=== PATIENT | male | born 1990 | race Caucasian/White ===

== ENCOUNTER 2023-11-23 17:40 | Inpatient (IN) | payer OTHER ==
[2023-11-23 18:21] LABS: Absolute Lymphocytes (CBC) 2.3 K/uL (0.7-4.9); Hematocrit 44.7 % (39.6-49.0); Lymphocytes % 24.9 % (15.3-44.8); MCV 88.1 fL (80-100); MPV 8.9 fL (7.6-11.3); Platelets 262 thou/uL (152-406); RBC Red Blood Cell Count 5.08 M/uL (4.33-5.43)
[2023-11-23 18:44] LABS: Bilirubin Total 0.4 mg/dL (0.2-1.0); Potassium 3.6 mEq/L (3.5-5.1); Protein, Total 8.2 g/dL (6.4-8.2); Protime INR 0.99
--- NOTE | 2023-11-23 19:37 | EDPHYS ---
Physician Documentation [facility] Name: Gordo Shah Jr Age: 33 yrs Sex: Male : 1990 Arrival Date: 11/23/2023 Time: 17:40 Bed 15 Private MD: ED Physician Guy Nixon HPI: 11/23 19:28 This 33 yrs old Male presents to ER via Ambulatory with complaints of Abscess. kb 19:28 Patient is a 33-year-old male with a history of HIV who presents for an abscess to left kb thigh that started a week ago. Was seen at urgent care, had an I\T\D with packing and put on Bactrim 4 days ago. Went back to urgent care today because redness has been spreading and he has had chills. Urgent care called him that because of the redness spreading he needed to come to the ER for evaluation and probable admission for IV antibiotics.. Historical: - Allergies: 17:54 Cipro PO; db - PMHx: 17:54 HIV positive; db - Immunization history:: Adult Immunizations unknown, Client reports having NOT received the Covid vaccine. - Social history:: Smoking status: Patient denies any tobacco usage or history of. ROS: 19:26 Constitutional: Negative for fever, chills, and weight loss, kb 19:26 Skin: Positive for abscess, cellulitis, 19:26 All other systems are negative, Exam: 19:26 Constitutional: This is a well developed, well nourished patient who is awake, alert, kb and in no acute distress. Head/Face: Normocephalic, atraumatic. ENT: Moist Mucous membranes Cardiovascular: Regular rate Respiratory: Respirations even and unlabored. No increased work of breathing. Talking in full sentences Abdomen/GI: Soft, non-tender. No distention MS/ Extremity: Pulses equal, no cyanosis. Neurovascular intact. Full, normal range of motion. Neuro: Awake and alert, GCS 15, oriented to person, place, time, and situation. Moves all extremities. Normal gait. 19:26 Skin: abscess, that is moderate sized, of the left quadriceps, with surrounding cellulitis, that is moderate, with packing in place, Vital Signs: 17:51 BP 132 / 80; Pulse 83; Resp 18; Temp 98.5(O); Pulse Ox 97% ; Weight 85.28 kg; Height 6 db ft. 1 in. ; 21:06 BP 120 / 75; Pulse 64; Resp 16; Temp 98(O); Pulse Ox 98% on R/A; km8 17:51 Body Mass Index 24.80 (85.28 kg, 185.42 cm) db MDM: 17:48 Patient medically screened. kb 19:25 Differential diagnosis: abscess, allergic reaction, cellulitis, insect bite. Data kb reviewed: vital signs, nurses notes. Consideration of Admission/Observation Patient was admitted/placed on observation. Escalation of care including admission/observation considered. Management of patient was discussed with the following: Hospitalist: Dr Casas accepts pt for admission. Counseling: I had a detailed discussion with the patient and/or guardian regarding the historical points, exam findings, and any diagnostic results supporting the discharge/admit diagnosis, lab results, the need for further work-up and treatment in the hospital. 11/23 17:55 Order name: Blood Culture Adult (2) kb 11/23 17:55 Order name: CBC with Diff; Complete Time: 18:22 kb 11/23 17:55 Order name: CMP; Complete Time: 18:45 kb 11/23 17:55 Order name: Lactate w/ 2H reflex if indic.; Complete Time: 18:48 kb 11/23 17:55 Order name: Protime (+inr); Complete Time: 18:48 kb 11/23 17:55 Order name: Ptt, Activated; Complete Time: 18:48 kb 11/23 21:21 Order name: Wound Culture EDAZ 11/23 21:43 Order name: Urinalysis w/ reflexes; Complete Time: 12:53 EDAZ 11/23 21:43 Order name: CBC with Automated Diff EDAZ 11/23 21:43 Order name: CBC with Automated Diff; Complete Time: 12:53 EDAZ 11/23 21:43 Order name: Comprehensive Metabolic Panel EDAZ 11/23 21:43 Order name: Comprehensive Metabolic Panel; Complete Time: 12:53 EDAZ 11/23 21:47 Order name: Wound Culture EDAZ 11/24 09:36 Order name: CT; Complete Time: 12:53 EDAZ 11/23 17:55 Order name: EKG; Complete Time: 17:56 kb 11/23 17:55 Order name: Accucheck; Complete Time: 18:20 kb 11/23 17:55 Order name: EKG - Nurse/Tech; Complete Time: 19:36 kb 11/23 17:55 Order name: IV Saline Lock - Large Bore; Complete Time: 18:17 kb 11/23 17:55 Order name: Labs collected and sent; Complete Time: 18:17 kb 11/23 17:55 Order name: O2 Per Protocol; Complete Time: 18:20 kb 11/23 17:55 Order name: O2 Sat Monitoring; Complete Time: 18:20 kb 11/23 17:55 Order name: Vital Signs; Complete Time: 18:20 kb Administered Medications: 19:52 Drug: Ketorolac IVP 15 mg IVP once Route: IVP; Site: right forearm; km8 21:07 Follow up: Response: No adverse reaction [facility] 20:10 Drug: vancoMYCIN IVPB 1 grams IVPB once over 2 hrs Route: IVPB; Infused Over: 2 hrs; km8 Site: right forearm; 22:15 Follow up: IV Status: Completed infusion; IV Intake: 250ml 8 Disposition Summary: 11/23/23 19:36 Hospitalization Ordered Notes: Hospitalization Status: Inpatient Admission kb Provider: Ese Casas Condition: Stable kb Problem: new kb Symptoms: are unchanged kb Bed/Room Type: Standard kb Location: Telemetry/MedSurg (Inpatient)(11/24/23 12:50) Room Assignment: [facility](11/24/23 12:50) bd Diagnosis - Cutaneous abscess of left lower limb kb - Cellulitis of left lower limb kb Forms: - Medication Reconciliation Form kb - SBAR form kb - Leadership Thank You Letter kb Addendum: 11/26/2023 07:04 Co-signature as Attending Physician, Guy Nixon MD I reviewed the patient's care r t provided by the Advanced Practice Provider and agree with the diagnosis and treatment plan. Signatures: Dispatcher [employer] Valerie Gates, TYLER THAYERP-Estephania Patino Danielle, RN Guy Walsh MD MD rt Arely Reagan RN RN km8 Damian Lemus Corrections: (The following items were deleted from the chart) 11/23 17:55 17:54 Allergies: No Known Allergies; [facility] 20:38 19:36 Telemetry/MedSurg (Inpatient) kb ty 20:38 19:36 kb ty 11/24 12:50 02 20:38 [facility] ER HOLD ty bd 11/24 12:50 11/23 20:38 ERHOLD- ty bd
--- NOTE | 2023-11-23 19:37 | ER ---
Nurse's Notes [facility] Name: Gordo Shah Jr Age: 33 yrs Sex: Male : 1990 Arrival Date: 11/23/2023 Time: 17:40 Bed 15 Private MD: Diagnosis: Cutaneous abscess of left lower limb;Cellulitis of left lower limb Presentation: 11/23 17:51 Chief complaint: Patient states: LEFT LEG ABSCESS STARTED LAST WEDNESDAY. SEEN AT URGENT db CARE WEDNESDAY STARTED ANTIBIOTIC AND WEDNESDAY AND WENT BACK TODAY. PACKED ON WEDNESDAY. HAD FOLLOW UP TODAY AND STATES WAS SENT TODAY TO ER BECAUSE REDNESS HAS SPREAD AND THE ABSCESS IS MORE SWOLLEN. Coronavirus screen: Vaccine status: Patient reports receiving the 2nd dose of the covid vaccine. Client denies travel out of the [place] in the last 14 days. At this time, the client does not indicate any symptoms associated with coronavirus-19. Ebola Screen: Patient negative for fever greater than or equal to 101.5 degrees Fahrenheit, and additional compatible Ebola Virus Disease symptoms Patient denies exposure to infectious person. Patient denies travel to an Ebola-affected area in the 21 days before illness onset. No symptoms or risks identified at this time. Initial Sepsis Screen: Does the patient meet any 2 criteria? No. Patient's initial sepsis screen is negative. Does the patient have a suspected source of infection? No. Patient's initial sepsis screen is negative. Risk Assessment: Do you want to hurt yourself or someone else? Patient reports no desire to harm self or others. Onset of symptoms was November 18, 2023. 17:51 Method Of Arrival: Ambulatory db 17:51 Acuity: SHAJI 3 db Triage Assessment: 17:54 General: Appears in no apparent distress. comfortable, Behavior is calm, cooperative. db Pain: Complains of pain in left leg. Neuro: Level of Consciousness is awake, alert, obeys commands, Oriented to person, place, time, situation. Respiratory: Airway is patent Respiratory effort is even, unlabored, Respiratory pattern is regular, symmetrical. Derm: Abscess located on left leg Reports. Historical: - Allergies: 17:54 Cipro PO; db - PMHx: 17:54 HIV positive; db - Immunization history:: Adult Immunizations unknown, Client reports having NOT received the Covid vaccine. - Social history:: Smoking status: Patient denies any tobacco usage or history of. Screenin:09 [facility] ED Fall Risk Assessment (Adult) History of falling in the last 3 months, ph including since admission No falls in past 3 months (0 pts) Score/Fall Risk Level 0 - 2 = Low Risk Oriented to surroundings, Maintained a safe environment, Provided non-skid footwear, Hourly rounding (assess needs \T\ fall precautionary measures) done. Abuse screen: Denies threats or abuse. Denies injuries from another. Nutritional screening: No deficits noted. Tuberculosis screening: No symptoms or risk factors identified. Assessment: 19:08 General: Appears in no apparent distress. comfortable, well groomed, Behavior is calm, ph cooperative, appropriate for age. Pain: Complains of pain in lateral aspect of left thigh. Neuro: Level of Consciousness is awake, alert, obeys commands, Oriented to person, place, time, situation. Cardiovascular: Capillary refill < 3 seconds in bilateral fingers Patient's skin is warm and dry. Respiratory: Airway is patent Respiratory effort is even, unlabored. GI: No signs and/or symptoms were reported involving the gastrointestinal system. Derm: Skin is pink, warm \T\ dry. Abscess located on lateral aspect of left thigh is nickel sized, is hot to touch, is red, is raised, packing in place. 19:38 Reassessment: Patient appears in no apparent distress at this time. No changes from km8 previously documented assessment. Patient and/or family updated on plan of care and expected duration. Pain level reassessed. Patient is alert, oriented x 3, equal unlabored respirations, skin warm/dry/pink. provider notified of pt requesting pain medication. 21:07 Reassessment: Patient appears in no apparent distress at this time. No changes from km8 previously documented assessment. Patient and/or family updated on plan of care and expected duration. Pain level reassessed. Patient is alert, oriented x 3, equal unlabored respirations, skin warm/dry/pink. Vital Signs: 17:51 BP 132 / 80; Pulse 83; Resp 18; Temp 98.5(O); Pulse Ox 97% ; Weight 85.28 kg; Height 6 db ft. 1 in. ; 21:06 BP 120 / 75; Pulse 64; Resp 16; Temp 98(O); Pulse Ox 98% on R/A; km8 17:51 Body Mass Index 24.80 (85.28 kg, 185.42 cm) db ED Course: 17:48 Patient arrived in ED. bc6 17:48 Valerie Zuleta FNP-C is [facility]. kb 17:48 Guy Nixon MD is Attending Physician. kb 17:54 Triage completed. db 17:54 Arm band placed on left wrist. Patient placed. db 18:17 Inserted saline lock: 20 gauge in right antecubital area, using aseptic technique. ap3 Blood collected. 18:17 Initial lab(s) drawn, by me, sent to lab. First set of blood cultures drawn by me. ap3 18:19 Josie Mercado, RN is Primary Nurse. ph 19:09 Patient has correct armband on for positive identification. Placed in gown. Bed in low ph position. Call light in reach. 19:09 Inserted saline lock: 22 gauge in right forearm, using aseptic technique. Blood ph collected. 19:09 No provider procedures requiring assistance completed. Patient admitted, IV remains in ph place. 19:35 Ese Casas MD is Hospitalizing Provider. kb 21:56 Wound Culture Sent. pf1 22:00 Provided Education on: admission process. km8 11/24 07:18 Primary Nurse role handed off by Josie Mercado, VALERIA bd Administered Medications: 11/23 19:52 Drug: Ketorolac IVP 15 mg IVP once Route: IVP; Site: right forearm; km8 21:07 Follow up: Response: No adverse reaction km8 20:10 Drug: vancoMYCIN IVPB 1 grams IVPB once over 2 hrs Route: IVPB; Infused Over: 2 hrs; km8 Site: right forearm; 22:15 Follow up: IV Status: Completed infusion; IV Intake: 250ml km8 Medication: 19:09 VIS not applicable for this client. ph Intake: 22:15 IV: 250ml; Total: 250ml. km8 Outcome: 19:36 Decision to Hospitalize by Provider. kb 22:00 Admitted to ER Hold. Please see [facility] for further documentation. km8 22:00 Condition: stable 22:00 Instructed on the need for admit, Demonstrated understanding of instructions, 11/24 14:33 Patient left the ED. kc6 Signatures: Valerie Zuleta FNP-C FNP-CkEstephania Prather Patricia, RN RN ph Delonte, Pura, RN RN ap3 Johana Magallanes, RN RN kc6 Luz Beebe RN RN db Марина Miles RN RN pf1 Antonietta Castillo6 Arely Reagan RN RN km8 Corrections: (The following items were deleted from the chart) 11/23 17:55 17:54 Allergies: No Known Allergies; jesenia db
[2023-11-23] MEDS ORDERED: NA CHLORIDE 0.9% 250 ML ONE (19:43)
[2023-11-23] MEDS ORDERED: KETOROLAC 30 MG/ML INJ ONE (19:43)
[2023-11-23] MEDS ORDERED: VANCOMYCIN 1 GM/VIAL ONE (19:43)
[2023-11-23] MEDS ORDERED: HYDROCODONE/APAP 5/325 MG TAB ONE (23:37)
[2023-11-23] MEDS ORDERED: NA CHLORIDE 0.9% 1,000 ML ONE (23:37)
[2023-11-23] MEDS: HYDROCODONE/APAP 5/325 MG TAB PO PRN (23:44)
[2023-11-23] MEDS: NA CHLORIDE 0.9% 1,000 ML IV SCH (23:45)
--- NOTE | 2023-11-24 00:16 | P.HP ---
Certification for Inpatient Patient admitted to: Inpatient With expected LOS: >2 Midnights Practitioner: I am a practitioner with admitting privileges, knowledge of patient current condition, hospital course, and medical plan of care. Services: Services provided to patient in accordance with Admission requirements found in Title 42 Section 412.3 of the Code of Federal Regulations Patient History Date of Service: 11/23/23 Reason for admission: Left leg cellulitis History of Present Illness: 33-year-old male HIV-positive (CD4 545 and unsure of his viral load) presented to the ED with left thigh abscess and increasing redness. Patient had developed swelling and redness of the left thigh 1 week ago and was seen at the urgent care where he had I&D done with packing and then discharged on Bactrim which she has taking for 4 days. He continues to have increased redness and worsening pain with chills. He denied any nausea or vomiting. He is compliant on his once every 2 months Cabenuva for HIV. On arrival to the ED his vital signs were within normal limits and labs were essentially normal. Allergies ciprofloxacin [From Cipro] Allergy (Verified 11/23/23 20:56) Itching/Hives/Rash Review of Systems 10-point ROS is otherwise unremarkable Physical Examination - Vital Signs Temperature: 98.5 F Blood Pressure: 132/80 Pulse: 83 Respirations: 18 Pulse Ox (%): 97 - Physical Exam General: Alert, In no apparent distress, Oriented x3 HEENT: Atraumatic, Normocephalic Neck: Supple, JVD not distended Respiratory: Clear to auscultation bilaterally, Normal air movement Cardiovascular: No edema, Regular rate/rhythm, Normal S1 S2 Gastrointestinal: Normal bowel sounds, Soft and benign Musculoskeletal: No swelling, No erythema, No tenderness Integumentary: Skin lesion (Right thigh wound, mild bleeding, surrounding redness and mild swelling), Tenderness/swelling, Erythema, Warmth Neurological: Normal gait, Normal speech, Normal strength at 5/5 x4 extr, Sensation intact - Studies Laboratory Data (last 24 hrs) 11/23/23 11/23/23 11/23/23 18:09 18:09 18:09 WBC 9.10 Hgb 15.4 Hct 44.7 Plt Count 262 PT 10.9 INR 0.99 APTT 33.8 Sodium 139 Potassium 3.6 BUN 18 Creatinine 1.27 Glucose 122 H Total Bilirubin 0.4 AST 27 ALT 43 Alkaline Phosphatase 87 Assessment and Plan - Plan Right thigh abscess/cellulitis s/p failed outpatient treatment HIV positive Plan Start IV cefazolin Pain control with Clarence Follow-up wound culture Last dose of Cabenuva was a month ago - Advance Directives Does patient have a Living Will: No Does patient have a Durable POA for Healthcare: No
[2023-11-24 01:15] VITALS: BMI 24.7
[2023-11-24] MEDS ORDERED: CEFAZOLIN SODIUM 1 GM/VIAL ONE ×2 (01:22→08:10)
[2023-11-24] MEDS ORDERED: NA CHLORIDE 0.9% 50 ML ONE (01:22)
[2023-11-24] MEDS: CEFAZOLIN 1 GM in NA CHLORIDE 0.9% 50 ML IVPB SCH (01:37)
[2023-11-24 05:03] LABS: Absolute Lymphocytes (CBC) 2.1 K/uL (0.7-4.9); Hematocrit 41.3 % (39.6-49.0); Lymphocytes % 36.9 % (15.3-44.8); MCV 88.5 fL (80-100); Platelets 240 thou/uL (152-406); RBC Red Blood Cell Count 4.66 M/uL (4.33-5.43)
[2023-11-24 05:16] LABS: Albumin 3.2 g/dL (3.4-5.0); Bilirubin Total 0.4 mg/dL (0.2-1.0); Potassium 4.1 mEq/L (3.5-5.1); Protein, Total 6.9 g/dL (6.4-8.2)
[2023-11-24] MEDS ORDERED: NA CHLORIDE 0.9% 100 ML ONE (08:10)
[2023-11-24] MEDS ORDERED: NA CHLORIDE 0.9% 1,000 ML ONE (08:11)
[2023-11-24] MEDS: VANCOMYCIN 1 GM in NA CHLORIDE 0.9% 250 ML IVPB SCH (08:59)
[2023-11-24] MEDS ORDERED: HYDROCODONE/APAP 5/325 MG TAB ONE (09:02)
[2023-11-24] MEDS ORDERED: VANCOMYCIN 1 GM/VIAL ONE ×2 (09:02→11:02)
[2023-11-24] MEDS ORDERED: NA CHLORIDE 0.9% 250 ML ONE ×2 (09:02→11:02)
--- NOTE | 2023-11-24 09:36 | RAD REPORT ---
EXAM DESCRIPTION: CT - Lower Extremity W/ Cont - 11/24/2023 9:16 am CLINICAL HISTORY: Left leg abscess COMPARISON: None. TECHNIQUE: 100 cc Isovue-300 Mr. intravenously. Axial computed tomography obtained from left hip to below the left knee. Coronal and sagittal reconstruction All CT scans are performed using dose optimization technique as appropriate and may include automated exposure control or mA/KV adjustment according to patient size. FINDINGS: Gauze has been placed on the anterior skin midthigh. Skin and subcutaneous tissues are thi ckened. 8 millimeter air bubble is present within the subcutaneous tissues. A fluid-filled abscess not seen. Remainder of the exam unremarkable IMPRESSION: 8 millimeter air bubble within the anterior subcutaneous tissues midthigh. A fluid-filled abscess is not present
[2023-11-24 10:00] LABS: Urine Bacteria None Seen /HPF (<20); Urine Bilirubin NEGATIVE (Negative); Urine Blood Negative (Negative); Urine Clarity Clear (Clear); Urine Color Yellow (Yellow); Urine Glucose NEGATIVE (Negative); Urine Mucus 3+ /HPF (None Seen); Urine Protein TRACE (Negative); Urine RBC <5 /HPF (None Seen); Urine Urobilinogen Normal (Normal); Urine pH 6.5 (5.0-7.0)
[2023-11-24] MEDS: VANCOMYCIN 1 GM in NA CHLORIDE 0.9% 250 ML IVPB ONE (10:00)
[2023-11-24 10:04] LABS: Specific Gravity > 1.030 (1.005-1.030)
[2023-11-24 14:45] VITALS: O2SAT 98
[2023-11-25] MEDS: VANCOMYCIN 1.5 GM in NA CHLORIDE 0.9% 500 ML IVPB STA (04:10)
[2023-11-25] MEDS: NA CHLORIDE 0.9% 500 ML IV SCH (04:30)
[2023-11-25] MEDS ORDERED: VANCOMYCIN 1 GM/VIAL ONE (04:30)
[2023-11-25] MEDS ORDERED: VANCOMYCIN 500 MG/VIAL ONE (04:30)
[2023-11-25] MEDS ORDERED: NA CHLORIDE 0.9% 500 ML ONE (04:30)
[2023-11-25] MEDS: VANCOMYCIN 1.5 GM in NA CHLORIDE 0.9% 500 ML IVPB SCH (04:45)
[2023-11-25] MEDS: VANCOMYCIN IV ONE (04:46)
[2023-11-25] MEDS ORDERED: HYDROCODONE/APAP 5/325 MG TAB PO PRN (08:34)
[2023-11-25] MEDS: ALBUTEROL INHALER 200 PUFF/6.7 GM IH PRN (10:19)
[2023-11-25] MEDS: SIMETHICONE 80 MG CHEWABLE TAB PO PRN (10:19)
[2023-11-25 10:22] VITALS: BP 121/77; TEMP 97.9
--- NOTE | 2023-11-25 16:11 | EKG ---
Test Date: 2023-11-23 Test Time: 19:21:45 [employer] Coordinator: ASHLEY MEASUREMENT RESULTS: Intervals: Rate: 63 AR: 156 QRSD: 92 QT: 408 QTc: 417 Blythe: P: 64 AR: 156 QRS: 85 T: 35 INTERPRETIVE STATEMENTS: Normal sinus rhythm Normal ECG No previous ECG available for comparison Electronically Signed On 11-25-23 16:05:36 ACCOUNT COLLECTOR by Delgado Corbin
== END 2023-11-25 10:40 | disposition home or self-care (01) | DRG 603 ==
LOC: ER 17:40 → ERHOLD 21:38 → 2ND 11-24 14:50
PROVIDERS: ADMIT Internal Medicine; ATTEND Hospitalist
DX: L03.116 Cellulitis of left lower limb (principal); L02.416 Cutaneous abscess of left lower limb; Z21 Asymptomatic human immunodeficiency virus [HIV] infection status; Z88.1 Allergy status to other antibiotic agents; Z28.310 Unvaccinated for COVID-19
CPT/HCPCS: 36415; 73701; 80053; 81001; 83605; 85025; 85610; 85730; 87040; 87070; 87077; 87186; 87205; 93005; J0690; J7030; J7040; J7050; Q9967